=== PATIENT | male | born 1995 | race Two or more races ===

== ENCOUNTER 2020-08-14 13:35 | Emergency (ER) | payer OTHER ==
[2020-08-14] MEDS ORDERED: KETOROLAC TROMETHAMINE 30 MG/1 ML VIAL ONE ×2 (13:39→14:18)
[2020-08-14 13:49] VITALS: BP 143/72; PULSE 96; TEMP 97; BMI 39.0
[2020-08-14] MEDS ORDERED: KETOROLAC TROMETHAMINE 60 MG/2 ML VIAL IM ONE (14:18)
== END 2020-08-14 15:42 | disposition home or self-care (01) ==
LOC: JERFT 13:35
PROC: 3E0233Z Introduction of Anti-inflammatory into Muscle, Percutaneous Approach (ICD-10-PCS; principal; 2020-08-14)
DX: S93.491A Sprain of other ligament of right ankle, initial encounter (principal)
CPT/HCPCS: 73590-TC-RT-FY; 73610-TC-RT-FY; 73630-TC-RT-FY; 99284-25